=== PATIENT | male | born 1960 | race Caucasian/White ===

== ENCOUNTER 2018-11-17 06:53 | Emergency (ER) | payer OTHER ==
[~2018-11-17] VITALS: Ht 175.3 cm; Wt 79.1 kg
[2018-11-17 06:54] VITALS: Ht 175.3 cm; Wt 79.1 kg
[2018-11-17] MEDS ORDERED: LIDOCAINE 1% (MDV) 20 ML INJ ONE (09:50)
--- NOTE | 2018-11-17 10:42 | ERD ---
ER Documentation Chief Complaint Chief Complaint SENT BY DR. EISENBERG FOR PERMACATH REMOVAL HPI Patient is a 58-year-old male with coronary disease and hypertension who presents for permacath removal. The patient was sent by Dr. Grace Eisenberg for removal of his catheter. He was on dialysis for 6 months after a cardiac arrest but no longer requires dialysis. He has no other complaints. He just came to have his catheter removed. ROS All systems reviewed and are negative except as per history of present illness. PMhx/Soc History of Surgery: Yes (3 stent placements; kidney stones removal) Hx Cardiac Disorders: Yes (hypertension) Hx Substance Use: No Hx Tobacco Use: No Smoking Status: Never smoker FmHx Family History: diabetes Physical Exam Vitals Vital Signs Date Temp Pulse Resp B/P (MAP) Pulse Ox O2 O2 Flow FiO2 Time Delivery Rate 11/17/18 97.7 83 18 164/95 100 06:54 (118) Physical Exam Const: No acute distress Head: Atraumatic Eyes: Normal Conjunctiva ENT: Normal External Ears, Nose and Mouth. Neck: Full range of motion. No meningismus. Resp: Clear to auscultation bilaterally Cardio: Regular rate and rhythm, no murmurs Abd: Soft, non tender, non distended. Normal bowel sounds Skin: No petechiae or rashes Back: No midline or flank tenderness Ext: No cyanosis, or edema Neur: Awake and alert Psych: Normal Mood and Affect Results 24 hrs Current Medications Medications Dose Sig/Hortencia Start Time Status Last (Trade) Ordered Route PRN Stop Time Admin Dose Reason Admin Lidocaine 20 ml STK-MED 11/17/18 DC (Xylocaine ONCE .ROUTE 09:50 1% (Mdv) 20 11/17/18 09:51 ml) Procedures/MDM Patient is a 58-year-old male who presents for permacath removal. The patient had his permacath removed without difficulty by radiology. The patient will be discharged. He can follow-up with his primary doctor within 1 week if needed. He can return for any worsening symptoms. Smoking Cessation Therapy: Pt. was lectured for greater than 3 minutes on the health risks of continued smoking and the benefits of cessation. Departure Diagnosis: Primary Impression: Encounter for removal of vascular catheter Condition: Fair Patient Instructions: IV Catheter Site Care Referrals: GRACE EISENBERG MD Additional Instructions: Call your primary care doctor TOMORROW for an appointment during the next 1 WEEK.Tell the secretary administrative assistant that you were referred from this facility.See the doctor sooner or return here if your condition worsens before your appointment time. CARL MUHAMMAD MD Nov 17, 2018 10:42
[2018-11-17 10:48] VITALS: BP 150/87; PULSE 60; RESP 20
== END 2018-11-17 10:49 | disposition home or self-care (01) ==
LOC: E/R 06:53
DX: Z45.2 Encounter for adjustment and management of vascular access device (principal); I10 Essential (primary) hypertension
CPT/HCPCS: 36589; Z7610